=== PATIENT | male | born 1975 | race Caucasian/White ===

== ENCOUNTER 2018-06-19 16:06 | Emergency (ER) | payer OTHER ==
[2018-06-19 17:22] VITALS: BP 122/75
--- NOTE | 2018-06-19 17:23 | ER Document Report ---
ED Extremity Problem, Lower - General Chief Complaint: Leg Pain Stated Complaint: LEG PAIN Time Seen by Provider: 06/19/18 17:14 Primary Care Provider: LORELEI LEYVA MD [Primary Care Provider] - Follow up as needed Mode of Arrival: Ambulatory Information source: Patient TRAVEL OUTSIDE OF THE [place] IN LAST 30 DAYS: No - HPI Patient complains to provider of: Pain, Swelling Location: Leg Occurred: Last week Onset/Duration: Gradual Quality of pain: Achy, Fullness, Pressure Severity: Moderate Pain Level: 3 Context: Recent surgery Exacerbated by: Movement Relieved by: Nothing Notes: Patient is a 42-year-old male presenting to the emergency room from ultrasound for findings of positive DVT in his right lower extremity, patient had arthroscopic knee surgery 5 weeks ago, over the past week he has been developing increased pain and swelling in the right lower extremity prompting his primary care provider to send him for an ultrasound of the leg which shows a DVT in the femoral vein, popliteal vein and calf veins - Related Data Allergies/Adverse Reactions: No Known Allergies Allergy (Verified 06/19/18 17:19) Past Medical History - General Information source: Patient - Social History Smoking Status: Never Smoker Family History: Reviewed & Not Pertinent Review of Systems - Review of Systems Constitutional: No symptoms reported EENT: No symptoms reported Cardiovascular: No symptoms reported Respiratory: No symptoms reported Gastrointestinal: No symptoms reported Genitourinary: No symptoms reported Male Genitourinary: No symptoms reported Musculoskeletal: See HPI Skin: No symptoms reported Hematologic/Lymphatic: No symptoms reported Neurological/Psychological: No symptoms reported -: Yes All other systems reviewed and negative Physical Exam - Vital signs Vitals: Temp Pulse Resp BP Pulse Ox 98.1 F 56 L 16 129/68 H 99 06/19/18 16:13 06/19/18 16:13 06/19/18 16:13 06/19/18 16:13 06/19/18 16:13 - Notes Notes: - General General appearance: Appears well, Alert In distress: None - HEENT Head: Normocephalic, Atraumatic Eyes: Normal Conjunctiva: Normal Extraocular movements intact: Yes Eyelashes: Normal Pupils: PERRL - Respiratory Respiratory status: No respiratory distress - Cardiovascular Rhythm: Regular - Abdominal Inspection: Normal - Back Back: Normal - Extremities General upper extremity: Normal inspection General lower extremity: Right lower extremity tenderness and fullness with mild erythema, distal sensation and motor is intact - Neurological Neuro grossly intact: Yes Orientation: AAOx4 [place] Coma Scale Eye Opening: Spontaneous [place] Coma Scale Verbal: Oriented [place] Coma Scale Motor: Obeys Commands [place] Coma Scale Total: 15 - Psychological Associated symptoms: Normal affect, Normal mood - Skin Skin Temperature: Warm Skin Moisture: Dry Skin Color: Normal Course - Re-evaluation Re-evalutation: 06/19/18 19:46 Patient with DVT noted on ultrasound which he was having done as an outpatient, it is extensive, therefore he was started on Xarelto, he denies any chest pain or shortness of breath, advised to return immediately if symptoms worsen or any additional concerns, patient acknowledges understanding and agreement with this plan - Vital Signs Vital signs: Temp Pulse Resp BP Pulse Ox 98.1 F 65 18 122/75 100 06/19/18 16:13 06/19/18 17:22 06/19/18 17:22 06/19/18 17:22 06/19/18 17:22 - Diagnostic Test Radiology reviewed: Image reviewed, Reports reviewed Discharge - Discharge Clinical Impression: DVT (deep venous thrombosis) Condition: Stable Disposition: HOME, SELF-CARE Instructions: DVT Outpatient Treatment ([facility]) Additional Instructions: Follow up with your primary care provider in one to 2 days. Return to the emerg ency room immediately if symptoms worsen or any additional concerns. Prescriptions: Rivaroxaban [Xarelto 15 mg Tablet] 15 mg PO BID #60 tablet Referrals: LORELEI LEYVA MD [Primary Care Provider] - Follow up as needed
== END 2018-06-19 17:24 | disposition home or self-care (01) ==
LOC: ER 16:06
DX: I82.411 Acute embolism and thrombosis of right femoral vein (principal); I82.431 Acute embolism and thrombosis of right popliteal vein; I82.491 Acute embolism and thrombosis of other specified deep vein of right lower extremity; M79.604 Pain in right leg
CPT/HCPCS: 99283

== ENCOUNTER → 2018-06-19 | Outpatient (CLI) | payer OTHER ==
--- NOTE | 2018-06-19 16:09 | RADIOLOGY REPORT (SQ) ---
EXAM DESCRIPTION: VENOUS UNILATERAL LOWER COMPLETED DATE/TIME: 06/19/2018 4:03 pm REASON FOR STUDY: RLE SWELLLING R22.41 LOCALIZED SWELLING, MASS AND LUMP, RIGHT LOWER LIMB M79.669 PAIN IN UNSPECIFIED LOWER LEG COMPARISON: None. TECHNIQUE: Dynamic and static soto scale and color images acquired of the right leg venous system. S elected spectral images acquired with additional compression and augmentation maneuvers. The contrala teral common femoral vein and saphenofemoral junction were also imaged. Images stored on PACS. LIMITATIONS: None. FINDINGS: COMMON FEMORAL: Normal phasicity, compression and augmentation. No visualized echogenic ma terial on soto scale. No defects on color images. FEMORAL: Nonocclusive thrombus distally, extending into the popliteal and calf veins. POPLITEAL: See above. CALF VESSELS: See above. GSV and SSV: Normal compression, augmentation. No visualized echogenic material on soto scale. No def ects on color images. ANY DEEP VENOUS INSUFFICIENCY: Not evaluated. ANY EVIDENCE OF POPLITEAL CYST: No. OTHER: No other significant finding. CONTRALATERAL COMMON FEMORAL VEIN AND SAPHENOFEMORAL JUNCTION: Normal phasicity, compression and augmentation. No visualized echogenic material on soto scale. No de fects on color images. IMPRESSION: Positive venous thrombosis femoral vein, popliteal and calf veins. TECHNICAL DOCUMENTATION: JOB ID: [id number] [employer]- All Rights Reserved Reading location - IP/workstation name: [email or web address]
== END ==
LOC: SP 14:57
PROVIDERS: ATTEND Orthopaedic Surgery
DX: M79.661 Pain in right lower leg (principal); R22.41 Localized swelling, mass and lump, right lower limb
CPT/HCPCS: 93971